=== PATIENT | male | born 1950 | race Caucasian/White ===

== ENCOUNTER → 2020-02-14 15:45 | Outpatient (BNVA) | payer MEDICARE, BC, SELFPAY | PROVIDERS: PCP Internal Medicine; Visit Provider Urology | DX: C61 Malignant neoplasm of prostate (principal); R23.2 Flushing; T50.905A Adverse effect of unspecified drugs, medicaments and biological substances, initial encounter | CPT/HCPCS: 96372; 99212; J9217 ==

== ENCOUNTER → 2020-05-16 15:05 | Outpatient (BNVA) | payer MEDICARE, SELFPAY | PROVIDERS: PCP Internal Medicine; Visit Provider Urology | DX: Z13.89 Encounter for screening for other disorder (principal) | CPT/HCPCS: Q3014 ==

== ENCOUNTER → 2020-08-21 14:57 | Outpatient (BNVA) | payer MEDICARE, SELFPAY | PROVIDERS: PCP Internal Medicine; Visit Provider Urology | DX: C61 Malignant neoplasm of prostate (principal); R23.2 Flushing; G47.62 Sleep related leg cramps; T50.905A Adverse effect of unspecified drugs, medicaments and biological substances, initial encounter | CPT/HCPCS: 99212 ==

== ENCOUNTER → 2020-11-21 10:32 | Outpatient (BNVA) | payer MEDICARE, BC, SELFPAY | PROVIDERS: PCP Internal Medicine; Visit Provider Urology | DX: C61 Malignant neoplasm of prostate (principal) | CPT/HCPCS: Q3014 ==

== ENCOUNTER → 2021-02-24 09:44 | Outpatient (BNVA) | payer MEDICARE, BC, SELFPAY | PROVIDERS: PCP Internal Medicine; Visit Provider Urology | DX: C61 Malignant neoplasm of prostate (principal) | CPT/HCPCS: Q3014 ==

== ENCOUNTER → 2021-05-26 14:58 | Outpatient (BNVA) | payer MEDICARE, BC, SELFPAY | PROVIDERS: PCP Internal Medicine; Visit Provider Urology | DX: C61 Malignant neoplasm of prostate (principal) | CPT/HCPCS: 99212 ==

== ENCOUNTER → 2021-09-09 10:36 | Outpatient (BNVA) | payer MEDICARE, BC, SELFPAY | PROVIDERS: PCP Internal Medicine; Visit Provider Urology | DX: C61 Malignant neoplasm of prostate (principal); E29.1 Testicular hypofunction | CPT/HCPCS: 99212 ==

== ENCOUNTER → 2022-03-17 09:22 | Outpatient (BNVA) | payer MEDICARE, BC, SELFPAY | PROVIDERS: PCP Internal Medicine; Visit Provider Urology | DX: E29.1 Testicular hypofunction (principal); C61 Malignant neoplasm of prostate | CPT/HCPCS: 99212 ==

== ENCOUNTER → 2022-09-15 08:51 | Outpatient (BNVA) | payer MEDICARE, BC, SELFPAY | PROVIDERS: PCP Internal Medicine; Visit Provider Urology | DX: C61 Malignant neoplasm of prostate (principal); E29.1 Testicular hypofunction; R97.21 Rising PSA following treatment for malignant neoplasm of prostate | CPT/HCPCS: Q3014 ==

== ENCOUNTER 2022-12-21 09:02 | Outpatient (AMB) | payer MEDICARE, BC, SELFPAY ==
--- NOTE | 2022-12-21 09:10 | A.OFFVIS_ITS ---
Intake Intake Visit Reasons: 3M PSA/Testosterone(set) Intake Note: Patient is present for Follow Up LABS Urology Med: Tadalafil (No longer on Finasteride, Testosterone) Antibiotic Allergy: Tetercycline Blood Thinner: None Pharmacy: [facility] Patient states due to side effects he has stopped taking Testosterone. Patient has spoken with Nurse Practioner here at office and confirmed that its okay to stopped. Patient reports that it has been 2 years since he stopped taking Finasteride. Allergies tetracycline Allergy (Unknown, Verified 12/21/22 09:12) Unknown HPI HPI Comments History of Present Illness Details Lex is a very pleasant male. He is a patient of Dr. Mcintyre. 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 External beam radiation with hormones 08/21 Prostate cancer was diagnosed 07/22 Dr Pierre for elevated PSA. Diagnosis was reached by needle biopsy, for elevated PSA, PSA at diagnosis 6.7 - PSA 05/25 <0.1, 11/22 <0.1, 02/22 <0.1, 05/26 <0.1, 09/23 <0.1 T 105, 03/25 <0.1 T 81, 09/24 <0.1 T75, 12/25 0.4 125 The Frankie grade is Biopsy June 2019 4+5 = 9, left mid gland, left base - 25% 4+4 = 8, left mid gland, signet cell features - 25% 3/12 cores = 4% total TNM Classification of Malignant Tumours (TNM) T1c The D'Velma (NCCN) risk category is Low Volume, High Risk (PSA > 20, Gl 8+, T3), Group 5 Last GnRH 02/21. Prior GnRH 08/21. Stop to finasteride mid 2020 Initial Therapy - EXBRT 08/21 [facility] Medical History Diverticulosis Depression Hyperlipidemia Hypothyroidism Degenerative joint disease of cervical and lumbar spine GERD (gastroesophageal reflux disease) Bladder outlet obstruction Weak urinary stream Elevated PSA Surgical History History of shoulder surgery History of back surgery Family History Other HTN (hypertension) Review of Systems Const Denies chills and Denies fever(s) Card Reports no additional complaints and Denies syncope Resp Denies cough GI Denies abdominal pain and Denies heartburn Reports as per HPI and Denies change in libido Neuro Denies syncope Psych Denies change in libido Endo Denies change in libido Physical Exam Const General: cooperative, healthy appearing, comfortable and no acute distress Orientation/consciousness: patient oriented x3 HEENT Face and sinus: Yes normal facial exam Mouth: moist mucous membranes Neck Neck: Yes normal visual inspection, Yes full ROM and Yes trachea midline Chest Chest palpation & inspection: normal inspection of the chest Resp Effort & Inspection: normal respiratory effort, able to speak in complete sentences and no respiratory distress GI Inspection: Yes normal to inspection Back/Spine/Pelvis Cervical Spine: normal cervical lordosis Thoracic/Lumbar Spine: thoracic and lumbar spine normal to inspection Skin General skin exam: no rashes or lesions noted Neuro General: patient oriented x3, gait normal, tone normal and moves all extremities Extrem General: Yes normal to inspection and Yes capillary refill normal Assessment & Plan Assessment & Plan (1) Prostate cancer: Comment: High-grade [place] 8 and 9, EXBRT with hormone therapy September 2019 Code(s): C61 - Malignant neoplasm of prostate Plan Six month follow-up Orders: Orders Prostate Specific Antigen 6 Months C61 - Malignant neoplasm of prostate Testosterone, Total 6 Months C61 - Malignant neoplasm of prostate Patient Instructions: Imaging studies, laboratory and physical exam results were discussed and reviewe d in detail. No major barriers to patient understanding were identified. An opportunity to ask questions regarding the treatment plan was provided. All questions were answered. The patient expressed understanding and agreement with the above treatment plan. The patient is aware they should contact our office by phone for worsening of their current condition or the appearance of new urologic symptoms. Compliance is encouraged with any medications and followup testing that is ordered. It is a privilege to participate in the urologic care of your patient. If you have any questions or concerns regarding treatment for the above conditions, or other urologic issues, please do not hesitate to contact me. The office telephone contact is [phone]. This note is constructed using voice recognition software. While every effort has been made to ensure accuracy imaging technician errors may have been included. Yours sincerely, Dr Jose A Pierre MD, [facility] - Urology Providers of Expert, Compassionate Care for the Genitourinary System Coding Level of Care Code Est Pt Level 3 (11556) Diagnoses Prostate cancer C61
== END 2022-12-21 09:48 | disposition home or self-care (01) ==
PROVIDERS: PCP Internal Medicine; Visit Provider Urology
DX: C61 Malignant neoplasm of prostate (principal)
CPT/HCPCS: 99213

== ENCOUNTER → 2022-12-21 09:02 | Outpatient (BNVA) | payer MEDICARE, BC, SELFPAY | PROVIDERS: PCP Internal Medicine; Visit Provider Urology | DX: C61 Malignant neoplasm of prostate (principal) | CPT/HCPCS: 99212 ==

== ENCOUNTER 2023-06-23 08:10 | Outpatient (AMB) | payer MEDICARE, BC, SELFPAY ==
--- NOTE | 2023-06-23 08:11 | A.OFFVIS_ITS ---
Intake Intake Visit Reasons: 6m PSA/Testo(set)Confirmed Intake Note: Patient presents today for telehealth a follow-up on Testo Meds- Tadalafil, Allergies to Antibiotic- Tetracycline Blood Thinner- None Senior Geotechnical Engineer Required: No Allergies tetracycline Allergy (Unknown, Verified 06/23/23 08:12) Unknown HPI HPI Comments History of Present Illness Details Lex is a very pleasant male. He is a patient of Dr. Mcintyre. 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 External beam radiation with hormones 08/21 Prostate cancer was diagnosed 07/22 Dr Pierre for elevated PSA. Diagnosis was reached by needle biopsy, for elevated PSA, PSA at diagnosis 6.7 - PSA 05/25 <0.1, 11/22 <0.1, 02/22 <0.1, 05/26 <0.1, 09/23 <0.1 T 105, 03/25 <0.1 T 81, 09/24 <0.1 T75, 12/25 0.4 125, 06/25 <0.1 75 The Frankie grade is Biopsy June 2019 4+5 = 9, left mid gland, left base - 25% 4+4 = 8, left mid gland, signet cell features - 25% 06/13 cores = 4% total TNM Classification of Malignant Tumours (TNM) T1c The D'Velma (NCCN) risk category is Low Volume, High Risk (PSA > 20, Gl 8+, T3), Group 5 Last GnRH 02/21. Prior GnRH 5/20. Stop to finasteride mid 2020 Initial Therapy - EXBRT 08/21 [facility] Medical History Diverticulosis Depression Hyperlipidemia Hypothyroidism Degenerative joint disease of cervical and lumbar spine GERD (gastroesophageal reflux disease) Bladder outlet obstruction Weak urinary stream Elevated PSA Surgical History History of shoulder surgery History of back surgery Family History Other HTN (hypertension) Review of Systems Const All systems reviewed & are unremarkable except as noted in HPI and below Reports no additional complaints Resp Reports no additional complaints GI Reports no additional complaints Reports as per HPI Musc Reports no additional complaints Physical Exam Telemedicine evaluation Appropriate responses Regular breathing rate and rhythm HEENT Head: Yes normal to inspection Ears: hearing grossly normal bilaterally Eyes General: appearance normal, both eyes and all related structures Neck Neck: Yes normal visual inspection Chest Chest palpation & inspection: normal inspection of the chest Resp Effort & Inspection: normal respiratory effort and able to speak in complete sentences Assessment & Plan Assessment & Plan (1) Prostate cancer: Comment: High-grade [place] 8 and 9, EXBRT with hormone therapy September 2019 Code(s): C61 - Malignant neoplasm of prostate (2) Hypogonadism in male: Code(s): E29.1 - Testicular hypofunction Plan 6m f/u T/PSA Orders: Orders Testosterone, Total 6 Months C61 - Malignant neoplasm of prostate Prostate Specific Antigen 6 Months C61 - Malignant neoplasm of prostate Patient Instructions: Imaging studies, laboratory and physical exam results were discussed and reviewed in detail. No major barriers to patient understanding were identified. An opportunity to ask questions regarding the treatment plan was provided. All questions were answered. The patient expressed understanding and agreement with the above treatment plan. The patient is aware they should contact our office by phone for worsening of their current condition or the appearance of new urologic symptoms. Compliance is encouraged with any medications and followup testing that is ordered. It is a privilege to participate in the urologic care of your patient. If you have any questions or concerns regarding treatment for the above conditions, or other urologic issues, please do not hesitate to contact me. The office telephone contact is [phone]. This note is constructed using voice recognition software. While every effort has been made to ensure accuracy set rider errors may have been included. Yours sincerely, Dr Jose A Pierre MD, [facility] - Urology Providers of Expert, Compassionate Care for the Genitourinary System Telehealth Telehealth Location of provider rendering services: practice address Location of patient: address on file Patient Identification confirmed using: Name, : Yes Telehealth method: video Patient verbally consented to treatment: Yes Patient verbally consented to billing insurance company: Yes Patient informed of any privacy concerns related to visit: Yes Coding Level of Care Code Tele Est Pt Level 3 (87798) Diagnoses Prostate cancer C61 Hypogonadism in male E29.1
== END 2023-06-23 09:28 | disposition home or self-care (01) ==
LOC: HO.HUSH 08:10
PROVIDERS: PCP Internal Medicine; Visit Provider Urology
DX: C61 Malignant neoplasm of prostate (principal); E29.1 Testicular hypofunction
CPT/HCPCS: 99213

== ENCOUNTER → 2023-06-23 08:10 | Outpatient (BNVA) | payer MEDICARE, BC, SELFPAY | PROVIDERS: PCP Internal Medicine; Visit Provider Urology ==

== ENCOUNTER 2023-12-27 08:25 | Outpatient (AMB) | payer MEDICARE, OTHER, BC, SELFPAY ==
--- NOTE | 2023-12-27 08:32 | A.OFFVIS_ITS ---
Intake Visit Reasons: 6M Follow Up-PSA/Testosterone(set) Intake Note: Patient presents today for 6m follow-up on Testo/psa Meds- Tadalafil, Allergies to Antibiotic- Tetracycline Blood Thinner- None Last Puller Required: No Allergies tetracycline Allergy (Unknown, Verified 12/27/23 08:34) Unknown HPI Comments Details: Lex is a very pleasant male. He is a patient of Dr. Mcintyre. He is seen for the following urologic issues - prostate cancer - hot flashes from hormone therapy - low testosterone following prostate cancer therapy PSA remains low T has not started to recover Recommend T Trial Three-month follow-up lab work He showed me pictures of his competition 0.22 rifGumGum Hormone - hypogonadism Post prostate therapy 09/24 - T72 FSH 46 LH 34 Prostate cancer: High-grade features. External beam radiation with hormones 08/21 Prostate cancer was diagnosed 07/22 Dr Pierre for elevated PSA. Diagnosis was reached by needle biopsy, for elevated PSA, PSA at diagnosis 6.7 - PSA 05/25 <0.1, 11/22 <0.1, 02/22 <0.1, 05/26 <0.1, 09/23 <0.1 T 105, 03/25 <0.1 T 81, 09/24 <0.1 T75, 12/25 0.4 125, 06/25 <0.1 75, 12/26 <0.1 54 The Frankie grade is Biopsy June 2019 4+5 = 9, left mid gland, left base - 25% 4+4 = 8, left mid gland, signet cell features - 25% 06/13 cores = 4% total TNM Classification of Malignant Tumours (TNM) T1c The D'Velma (NCCN) risk category is Low Volume, High Risk (PSA > 20, Gl 8+, T3), Group 5 Last GnRH 02/21. Prior GnRH 08/21. Stop to finasteride mid 2020 Initial Therapy - EXBRT 08/21 [facility] Medical History Diverticulosis Depression Hyperlipidemia Hypothyroidism Degenerative joint disease of cervical and lumbar spine GERD (gastroesophageal reflux disease) Bladder outlet obstruction Weak urinary stream Elevated PSA Surgical History History of shoulder surgery History of back surgery Family History Other HTN (hypertension) Review of Systems Const Denies chills and Denies fever(s) Card Reports no additional complaints and Denies syncope Resp Denies cough GI Denies abdominal pain and Denies heartburn Reports as per HPI and Denies change in libido Neuro Denies syncope Psych Denies change in libido Endo Denies change in libido Physical Exam Const General: cooperative, healthy appearing, comfortable and no acute distress Orientation/consciousness: patient oriented x3 HEENT Face and sinus: Yes normal facial exam Mouth: moist mucous membranes Neck Neck: Yes normal visual inspection, Yes full ROM and Yes trachea midline Chest Chest palpation & inspection: normal inspection of the chest Resp Effort & Inspection: normal respiratory effort, able to speak in complete sentences and no respiratory distress GI Inspection: Yes normal to inspection Back/Spine/Pelvis Cervical Spine: normal cervical lordosis Thoracic/Lumbar Spine: thoracic and lumbar spine normal to inspection Skin General skin exam: no rashes or lesions noted Neuro General: patient oriented x3, gait normal, tone normal and moves all extremities Extrem General: Yes normal to inspection and Yes capillary refill normal Assessment & Plan Assessment & Plan (1) Prostate cancer: Comment: High-grade [place] 8 and 9, EXBRT with hormone therapy September 2019 Code(s): C61 - Malignant neoplasm of prostate Category: Medical (2) Hypogonadism in male: Code(s): E29.1 - Testicular hypofunction Category: Medical Plan Three-month follow-up Orders: Orders Prostate Specific Antigen 3 Months E29.1 - Testicular hypofunction Testosterone, Total 3 Months E29.1 - Testicular hypofunction Medications: New testosterone Apply to shoulder and rub in until dry 1 packet transdermal DAILY 30 days 150 grams 5RF E29.1 - Testicular hypofunction Patient Instructions: Imaging studies, laboratory and physical exam results were discussed and reviewed in detail. No major barriers to patient understanding were identified. An opportunity to ask questions regarding the treatment plan was provided. All questions were answered. The patient expressed understanding and agreement with the above treatment plan. The patient is aware they should contact our office by phone for worsening of their current condition or the appearance of new urologic symptoms. Compliance is encouraged with any medications and followup testing that is ordered. It is a privilege to participate in the urologic care of your patient. If you have any questions or concerns regarding treatment for the above conditions, or other urologic issues, please do not hesitate to contact me. The office telephone contact is [phone]. This note is constructed using voice recognition software. While every effort has been made to ensure accuracy crate builder errors may have been included. Yours sincerely, Dr Jose A Pierre MD, [facility] - Urology Providers of Expert, Compassionate Care for the Genitourinary System Coding Level of Care Code Est Pt Level 4 (96958) Diagnoses Prostate cancer C61 Hypogonadism in male E29.1
== END 2023-12-27 09:22 | disposition home or self-care (01) ==
PROVIDERS: PCP Internal Medicine; Visit Provider Urology
DX: C61 Malignant neoplasm of prostate (principal); E29.1 Testicular hypofunction
CPT/HCPCS: 99214

== ENCOUNTER → 2023-12-27 08:25 | Outpatient (BNVA) | payer MEDICARE, OTHER, BC, SELFPAY | PROVIDERS: PCP Internal Medicine; Visit Provider Urology | DX: C61 Malignant neoplasm of prostate (principal); E29.1 Testicular hypofunction | CPT/HCPCS: 99212 ==

== ENCOUNTER 2024-03-23 12:58 | Outpatient (AMB) | payer MEDICARE, OTHER, SELFPAY ==
--- NOTE | 2024-03-23 12:58 | MHC.OFFVIS ---
Intake Visit Reasons: 3m/labs Intake Note: Patient is present for 3M/LABS Urology Medication:TADALAFIL,TESTOSTERONE Antibiotic Allergy:TETRACYCLINE Blood Thinner:NONE Physical Science Professor Required: No Allergies tetracycline Allergy (Unknown, Verified 03/23/24 12:59) Unknown HPI Comments Details: Lex is a very pleasant male. He is a patient of Dr. Mcintyre. 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 External beam radiation with hormones 08/21 Prostate cancer was diagnosed 07/22 Dr Pierre for elevated PSA. Diagnosis was reached by needle biopsy, for elevated PSA, PSA at diagnosis 6.7 - PSA 05/25 <0.1, 11/22 <0.1, 02/22 <0.1, 05/26 <0.1, 09/23 <0.1 T 105, 03/25 <0.1 T 81, 09/24 <0.1 T75, 12/25 0.4 125, 06/25 <0.1 75, 12/26 <0.1 54 The [place] grade is Biopsy June 2019 4+5 = 9, left mid gland, left base - 25% 4+4 = 8, left mid gland, signet cell features - 25% 06/13 cores = 4% total TNM Classification of Malignant Tumours (TNM) T1c The D'Velma (NCCN) risk category is Low Volume, High Risk (PSA > 20, Gl 8+, T3), Group 5 Last GnRH 02/21. Prior GnRH 08/21. Stop to finasteride mid 2020 Initial Therapy - EXBRT 08/21 [facility] Medical History Diverticulosis Depression Hyperlipidemia Hypothyroidism Degenerative joint disease of cervical and lumbar spine GERD (gastroesophageal reflux disease) Bladder outlet obstruction Weak urinary stream Elevated PSA Surgical History History of shoulder surgery History of back surgery Family History Other HTN (hypertension) Review of Systems Const All systems reviewed & are unremarkable except as noted in HPI and below Reports no additional complaints Resp Reports no additional complaints GI Reports no additional complaints Reports as per HPI Musc Reports no additional complaints Physical Exam Telemedicine evaluation Appropriate responses Regular breathing rate and rhythm HEENT Head: Yes normal to inspection Ears: hearing grossly normal bilaterally Eyes General: appearance normal, both eyes and all related structures Neck Neck: Yes normal visual inspection Chest Chest palpation & inspection: normal inspection of the chest Resp Effort & Inspection: normal respiratory effort and able to speak in complete sentences Telehealth Telehealth Telehealth Platform: [employer] Location of provider rendering services: practice address Location of patient: address on file Patient Identification confirmed using: Name, : Yes Telehealth method: video Patient verbally consented to treatment: Yes Patient verbally consented to billing insurance company: Yes Patient informed of any privacy concerns related to visit: Yes Minutes spent on Phone/Video with Pt.: 15 Assessment & Plan Assessment & Plan (1) Hypogonadism in male: Code(s): E29.1 - Testicular hypofunction Category: Medical (2) Prostate cancer: Comment: High-grade [place] 8 and 9, EXBRT with hormone therapy September 2019 Code(s): C61 - Malignant neoplasm of prostate Category: Medical Plan Three-month follow-up lab work Orders: Orders Testosterone, Total 3 Months E29.1 - Testicular hypofunction Prostate Specific Antigen 3 Months E29.1 - Testicular hypofunction Medications: Refilled testosterone Apply to shoulder and rub in until dry 1 packet transdermal DAILY 30 days 150 grams 5RF E29.1 - Testicular hypofunction Patient Instructions: Imaging studies, laboratory and physical exam results were discussed and reviewed in detail. No major barriers to patient understanding were identified. An opportunity to ask questions regarding the treatment plan was provided. All questions were answered. The patient expressed understanding and agreement with the above treatment plan. The patient is aware they should contact our office by phone for worsening of their current condition or the appearance of new urologic symptoms. Compliance is encouraged with any medications and followup testing that is ordered. It is a privilege to participate in the urologic care of your patient. If you have any questions or concerns regarding treatment for the above conditions, or other urologic issues, please do not hesitate to contact me. The office telephone contact is [phone]. This note is constructed using voice recognition software. While every effort has been made to ensure accuracy asset protection associate errors may have been included. Yours sincerely, Dr Jose A Pierre MD, [facility] - Urology Providers of Expert, Compassionate Care for the Genitourinary System Coding Level of Care Code Tele Est Pt Level 3 (15288) Diagnoses Hypogonadism in male E29.1 Prostate cancer C61
== END 2024-03-23 13:40 | disposition home or self-care (01) ==
LOC: HO.HUSH 12:58
PROVIDERS: PCP Internal Medicine; Visit Provider Urology
DX: E29.1 Testicular hypofunction (principal); C61 Malignant neoplasm of prostate
CPT/HCPCS: 99213

== ENCOUNTER 2024-07-17 08:47 | Outpatient (AMB) | payer MEDICARE, OTHER, SELFPAY ==
--- NOTE | 2024-07-17 08:54 | A.OFFVIS_ITS ---
Intake Visit Reasons: 3m/labs Intake Note: Patient is present for 3M/LABS Urology Medication:TADALAFIL,TESTOSTERONE,MEGESTROL Antibiotic Allergy:TETRACYCLINE Blood Thinner:NONE Lead Generation Representative Required: No Allergies tetracycline Allergy (Unknown, Verified 07/17/24 08:55) Unknown HPI Comments Details: Lex is a very pleasant male. He is a patient of Dr. Mcintyre. 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 External beam radiation with hormones 08/21 Prostate cancer was diagnosed 07/22 Dr Pierre for elevated PSA. Diagnosis was reached by needle biopsy, for elevated PSA, PSA at diagnosis 6.7 - PSA 05/25 <0.1, 11/22 <0.1, 02/22 <0.1, 05/26 <0.1, 09/23 <0.1 T 105, 03/25 <0.1 T 81, 09/24 <0.1 T75, 12/25 0.4 125, 06/25 <0.1 75, 12/26 <0.1 54 The Ellsworth grade is Biopsy June 2019 4+5 = 9, left mid gland, left base - 25% 4+4 = 8, left mid gland, signet cell features - 25% /12 cores = 4% total TNM Classification of Malignant Tumours (TNM) T1c The D'Velma (NCCN) risk category is Low Volume, High Risk (PSA > 20, Gl 8+, T3), Group 5 Last GnRH 02/21. Prior GnRH 08/21. Stop to finasteride mid 2020 Initial Therapy - EXBRT 08/21 [facility] Medical History Diverticulosis Depression Hyperlipidemia Hypothyroidism Degenerative joint disease of cervical and lumbar spine GERD (gastroesophageal reflux disease) Bladder outlet obstruction Weak urinary stream Elevated PSA Surgical History History of shoulder surgery History of back surgery Family History Other HTN (hypertension) Review of Systems Const Denies chills and Denies fever(s) Card Reports no additional complaints and Denies syncope Resp Denies cough GI Denies abdominal pain and Denies heartburn Reports as per HPI and Denies change in libido Neuro Denies syncope Psych Denies change in libido Endo Denies change in libido Physical Exam Const General: cooperative, healthy appearing, comfortable and no acute distress Orientation/consciousness: patient oriented x3 HEENT Face and sinus: Yes normal facial exam Mouth: moist mucous membranes Neck Neck: Yes normal visual inspection, Yes full ROM and Yes trachea midline Chest Chest palpation & inspection: normal inspection of the chest Resp Effort & Inspection: normal respiratory effort, able to speak in complete sentences and no respiratory distress GI Inspection: Yes normal to inspection Back/Spine/Pelvis Cervical Spine: normal cervical lordosis Thoracic/Lumbar Spine: thoracic and lumbar spine normal to inspection Skin General skin exam: no rashes or lesions noted Neuro General: patient oriented x3, gait normal, tone normal and moves all extremities Extrem General: Yes normal to inspection and Yes capillary refill normal Assessment & Plan Assessment & Plan (1) Prostate cancer: Comment: High-grade Frankie 8 and 9, EXBRT with hormone therapy September 2019 Code(s): C61 - Malignant neoplasm of prostate Category: Medical (2) Hypogonadism in male: Code(s): E29.1 - Testicular hypofunction Category: Medical Plan Six-month follow-up lab work Orders: Orders Prostate Specific Antigen 6 Months E29.1 - Testicular hypofunction Testosterone, Total 6 Months E29.1 - Testicular hypofunction Complete Blood Count no Diff 6 Months E29.1 - Testicular hypofunction Medications: Refilled testosterone Apply to shoulder and rub in until dry 1 packet transdermal DAILY 30 days 150 grams 5RF E29.1 - Testicular hypofunction tadalafil daily 5 mg PO DAILY 90 days 90 tabs 1RF hypogonadism E29.1 - Testicular hypofunction Discontinued megestrol Discontinued Reason: Patient Completed Course 20 mg PO BID 30 days 60 tabs 1RF R23.2 - Flushing, T50.905A - Adverse effect of unspecified drugs, medicaments and biological substances, initial encounter Patient Instructions: This note is constructed using voice recognition software. While every effort has been made to ensure accuracy branch operations specialist errors may have been included. Imaging studies, laboratory and physical exam results were discussed and r eviewed in detail. No major barriers to patient understanding were identified. An opportunity to ask questions regarding the treatment plan was provided. All questions were answered. The patient expressed understanding and agreement with the above treatment plan. The patient is aware they should contact our office by phone for worsening of their current condition or the appearance of new urologic symptoms. Compliance is encouraged with any medications and followup testing that is ordered. It is a privilege to participate in the urologic care of your patient. If you have any questions or concerns regarding treatment for the above conditions, or other urologic issues, please do not hesitate to contact me. The office telephone contact is [phone]. Sincerely, Dr Jose A Pierre MD, [facility] - Urology Compassionate Specialist Care for the Genitourinary System Coding Level of Care Code Est Pt Level 3 (76378) Complex EM visit Add On G2211 Diagnoses Prostate cancer C61 Hypogonadism in male E29.1
--- OUTSIDE RECORDS SUMMARY | 2024-07-17 09:10 | XMS_ITS | Clinical Summary ---
Author Organization [facility] Address [address] [place] [address] Care Team Providers Care Steep Tender Name Role Phone Zachary Mcintyre MD Primary Care Provider [phone] Surgical History Surgery Date Site/Laterality Comments NECK SURGERY PROCEDURE:NECK SURGERY SPINAL CORD DECOMPRESSION PROCEDURE:SPINAL CORD DECOMPRESSION SPINAL FUSION PROCEDURE:SPINAL FUSION CATARACT EXTRACTION, BILATERAL PROCEDURE:CATARACT EXTRACTION, BILATERAL SINUS SURGERY PROCEDURE:SINUS SURGERY COLONOSCOPY 01/19/2018 N/A PROCEDURE:COLONOSCOPY;COMMENT :Procedure: COLONOSCOPY; Surgeon: Leonel Handley MD; Location: [facility]; Service: Gastroenterology; Laterality: N/A; SHOULDER SURGERY Left PROCEDURE:SHOULDER SURGERY Medical History Medical History Date Comments Hypothyroidism DX:Hypothyroidis m Hyperlipidemia DX:Hyperlipidemi a GERD (gastroesophageal reflux disease) DX:GERD (gastroesophageal reflux disease) Cancer ([facility] V24, [facility] V28) DX:Cancer ([facility]);COMMENT:prostate Family History Medical History Relation Name Comments Hypertension Brother 1 Alcohol abuse Brother 2 Drug abuse Brother 2 Childhood respiratory disease Brother 3 Aneurysm Father Aneurysm Father's Brother Aneurysm Father's Sister Colon cancer Mother Prostate cancer Mother's Brother Lung cancer Sister 1 Cancer Sister 2 breast Lupus Sister 3 Relation Name Status Comments Brother 1 Alive Brother 2 Brother 3 (Age 1.5) unknown c hildhood illness Father Father's Brother Father's Sister Mother Mother's Brother Sister 1 Sister 2 Alive Sister 3 Alive Social History Tobacco Use Types Packs/Day Years Used Date Smoking Tobacco: Never Smokeless Tobacco: Never Alcohol Use Standard Drinks/Week Comments Not Currently 0 (1 standard drink = 0.6 oz pur e alcohol) Sex and Gender Information Value Date Recorded Sex Assigned at Not on file Legal Sex Male 5:01 PM EST Gender Identity Not on file Sexual Orientation Not on file Obstetrics History Last Filed Vital Signs Vital Sign Reading Time Taken Comments Blood Pressure 130/80 08/16/2022 7:58 AM EDT Pulse 60 08/16/2022 7:58 AM EDT Temperature - - Respiratory Rate - - Oxygen Saturation - - Inhaled Oxygen Concentration - - Weight 82.7 kg (182 lb 6.4 oz) 09/12/2023 11:11 AM EDT Height 172.7 cm (5' 8 ) 09/12/2023 11:11 AM EDT Body Mass Index 27.73 09/12/2023 11:11 AM EDT Plan of Treatment Health Maintenance Due Date Last Done Comments COVID-19 Vaccine (#1) 07/21/1955 DTaP,Tdap,and Td Vaccines (1 - Tdap) 07/21/1970 Pneumococcal Vaccine: 50+ Ye ars (1 of 2 - PCV) 07/21/1970 Zoster Vaccines (1 of 2) 07/21/1970 Cholesterol Screening (Lipid Panel) 03/03/2022 Colorectal Cancer Screening: Colonoscopy 03/03/2022 Depression Screening 03/03/2022 Falls Risk Assessment 03/03/2022 Hepatitis C Screening 03/03/2022 Social Influencers of Health Screening 03/03/2022 Influenza Vaccine (Season Ended) 2024 RSV Immunization Adult Patie nts (1 - 1-dose 75+ series) 07/21/2026 HIB Vaccines Aged Out No longer eligi ble based on patient's age to complete this topic HPV Vaccines Aged Out No longer eligi ble based on patient's age to complete this topic Hepatitis A Vaccines Aged Out No long er eligible based on patient's age to complete this topic Hepatitis B Vaccines Aged Out No long er eligible based on patient's age to complete this topic IPV Vaccines Aged Out No longer eligi ble based on patient's age to complete this topic MMR Vaccines Aged Out No longer eligi ble based on patient's age to complete this topic Meningococcal ACWY Vaccine Aged Out N o longer eligible based on patient's age to complete this topic Meningococcal B Vaccine Aged Out No l onger eligible based on patient's age to complete this topic RSV Immunization Patients Un davi 20 months Aged Out No longer eligible b ased on patient's age to complete this topic Varicella Vaccines Aged Out No longer eligible based on patient's age to complete this topic Care Teams Steep Tender Relationship Specialty Start Date End Date Zachary Mcintyre MD PCP - General Claims Collector 01/17/18
--- OUTSIDE RECORDS SUMMARY | 2024-07-17 09:10 | XMS_ITS ---
Author Name [facility] Organization Unknown Results Test Name/Text Value Interpretation Date Range Source Troponin I SerPl HS-mCnc 6ng/L Normal [id number] 0 - 20 [facility] D DIMER DDU PPP EIA MCNC 306ng/mLDDU Above high normal [id number] - 231 [facility] MAGNESIUM SERPL MCNC 1.8mg/dL Normal [id number] 1.7 - 2.8 [facility] Troponin I SerPl HS-mCnc 6ng/L Normal [id number] 0 - 20 [facility] CREAT SERPL [facility] 1mg/dL Normal [id number] 0.7 - 1.3 [facility] SODIUM SERPL SCNC 140mmol/L Normal [id number] 135 - 145 [facility] GLUCOSE SERPL [facility]NC 110mg/dL Normal [id number] 70 - 199 [facility] Glomerular filtration rate/1.73 sq M. predicted 80 Normal [id number] 60 - [facility] CHLORIDE SERPL SCNC 103mmol/L Normal [id number] 98 - 10 7 [facility] HCO3 SER SCNC 28mmol/L Normal [id number] 24 - 32 [facility] POTASSIUM SERPL SCNC 3.9mmol/L Normal [id number] 3.5 - 5.1 [facility] ANION GAP SERPL SCNC 9mmol/L Normal [id number] 5 - 14 [facility] BUN SERPL [facility] 18mg/dL Normal [id number] 9 - 20 [facility] CALCIUM SERPL [facility]NC 9.7mg/dL Normal [id number] 8.4 - 10 .2 [facility] APTT TIME PPP 36sec Normal [id number] 25 - 37 [facility] PT TIME PPP 10.6sec Normal [id number] 10.5 - 13.3 [facility] INR PPP 0.9 Normal [id number] 0.8 - 1.1 [facility] AN DIFFERENTIAL TYPE AUTOMATED Normal [id number] [facility] NEUTROPHILS NFR BLD AUTO 61.8% Normal [id number] 44 - 74 [facility] BASOPHILS NFR BLD AUTO 0.7% Normal [id number] 0 - 2 [facility] MONOCYTES NFR BLD AUTO 9% Normal [id number] 2 - 12 [facility] HCT VFR BLD AUTO 39.7% Below low normal [id number] 40 - 54 [facility] MONOCYTES NO. BLD AUTO 0.5K/uL Normal [id number] 0 - 0.8 [facility] RDW RBC AUTO RTO 13.5% Normal [id number] 12.1 - 17. 7 [facility] PLATELET NO. BLD AUTO 253K/uL Normal [id number] 150 - 450 [facility] EOSINOPHIL NO. BLD AUTO 0.1K/uL Normal [id number] 0 - 0.5 [facility] RBC NO. BLD AUTO 4.46M/uL Below low normal [id number] 4.7 - 6 [facility] MCH RBC QN AUTO 30.8pg Normal [id number] 25 - 33 C [facility] MCHC RBC AUTO MCNC 34.7g/dL Normal [id number] 32 - 36 [facility] HGB BLD MCNC 13.8g/dL Normal [id number] 13.5 - 18 [facility] BASOPHILS IN BLOOD BY AUTOMATED COUNT 0K/uL Normal [id number] 0 - 0.2 [facility] WBC NO. BLD AUTO 5.4K/uL Normal [id number] 4 - 10.5 [facility] EOSINOPHIL NFR BLD AUTO 2.4% Normal [id number] 0 - 6 [facility] LYMPHOCYTES NFR BLD AUTO 26.1% Normal [id number] 20 - 48 [facility] MCV RBC AUTO 88.9fL Normal [id number] 78 - 100 [facility] NEUTROPHILS NO. BLD AUTO 3.3K/uL Normal [id number] 1.8 - 7.8 [facility] LYMPHOCYTES NO. BLD AUTO 1.4K/uL Normal [id number] 1 - 3.2 [facility] PMV BLD AUTO 6.7fL Below low normal [id number] 7.4 - 1 1.4 [facility] History of Medication Use Medication Directions Dispensed Refills Start Date End Date Stat us senna (SENOKOT) 8.6 MG tablet 2 tablet 2 tablet, Oral, Daily, First dose on 08/06/23 at 0900Hold for loose stools. 08/06/2023 active levothyroxine (SYNTHROID) tablet 112 mcg 112 mcg, Oral, Daily, First dose on 08/06/23 at 0600 07/01/2023 active cyclobenzaprine (FLEXERIL) 10 MG tablet Take 0.5 tablets (5 mg total) by mouth every night at bedtime as needed for muscle spasms. 09/18/2021 08/05/2023 aborted levothyroxine (SYNTHROID) tablet 125 mcg 08/06/2022 08/05/2023 aborted pantoprazole (PROTONIX) 40 MG EC tablet 40 mg 40 mg, Oral, Every Morning on an empty stomach (Daily), First dose on 08/06/23 at 0600Please select an indication: GERDIs this a home medication or a new start? Home Medication 08/06/2023 active Allergies Allergen Reaction Severity Comment Documented Date Source Statu s TETRACYCLINES [facility] Problems Problem Status Onset Date Problem Type Date of Resoluti on Source Screening for colon cancer active EncounterDiagnosisAct [facility] Prostate cancer active 2019-08-[address] [facility] Syncope and collapse active 2021-09-17 ProblemAct [facility] Chest pain active 2023-08-05 ProblemAct [facility] Hypoxia active 2021-03-13 ProblemAct [facility] N Encounters Encounter Type Encounter Reason Primary Diagnosis Location Date Ambulatory Malignant neoplasm o f prostate Malignant neoplasm of prostate [facility] 09/12/2023 Ambulatory [facility] 08/16/2023 Inpatient Chest pain, unspecified Chest pain, unspecified [facility] 08/05/2023 Care Team Organization Name Specialty Phone Email Start Date End Da te [facility] 04/15/2024 [facility] 04/11/2024 [facility] 02/16/2024 [facility] 02/16/2024 [facility] 0508/2023 [facility] 08/05/2023 [facility] 09/06/2022 12[facility]08[facility]20[facility] 07/21/2022 07/21/2022
--- OUTSIDE RECORDS SUMMARY | 2024-07-17 09:10 | XMS_ITS | Clinical Summary ---
Author Organization [facility] Address [address] [place] [address] Care Team Providers Care Retail Asset Protection Specialist Name Role Phone Malik Ruvalcaba MD Primary Care Provider Allergies Active Allergy Reactions Criticality Noted Date Comments Tetracyclines & Related 12/20/2017 Medications FLUTICASONE PROPIONATE, NASAL, (FT Allergy Relief 24 HR) 50 MCG/ACT nasal spray USE 2 SPRAYS EACH NOSTRIL AT BEDTIME 1 6 12/20/2017 Active Omeprazole (PriLOSEC) [address] capsule 90 0 07/07/2022 Active Simvastatin (ZOCOR) 20 MG tablet 90 0 07/07/2022 Active Levothyroxine Sodium (SYNTHROID, LEVOTHROID) 125 MCG tablet 30 0 08/06/2022 Active Active Problems Problem Noted Date Diagnosed Date Allergic rhinitis 08/23/2022 Neck pain 08/23/2022 Sensory hearing loss, bilateral 12/20/2017 Hypertrophy of inferior nasal turbinate 12/21/19 Social History Tobacco Use Types Packs/Day Years Used Date Smoking Tobacco: Never Assessed Sex and Gender Information Value Date Recorded Sex Assigned at Not on file Legal Sex Male 6:38 PM EDT Gender Identity Not on file Sexual Orientation Not on file Last Filed Vital Signs Vital Sign Reading Time Taken Comments Blood Pressure 133/78 12/20/2017 10:31 AM EDT Pulse 61 12/20/2017 10:31 AM EDT Temperature - - Respiratory Rate - - Oxygen Saturation - - Inhaled Oxygen Concentration - - Weight 78.9 kg (174 lb 0.2 oz) 12/20/2017 10:29 AM EDT Height 170.2 cm (5' 7 ) 12/20/2017 10:29 AM EDT Body Mass Index 27.25 12/20/2017 10:29 AM EDT Plan of Treatment Health Maintenance Due Date Last Done Comments Hepatitis C Screening 1950 DTaP/Tdap/Td (1 - Tdap) 07/21/1969 Colon Cancer Screening 07/21/1996 Pneumococcal 50+ years (1 of 1 - PCV) 07/21/2001 Zoster (Shingrix) (1 of 2) 07/21/2001 COVID-19 Vaccine ( - 2023-2 5 season) 2023 Influenza (#1) 2023 RSV (1 - 1-dose 75+ series) 07/21/2026 Abdominal Aorta Imaging Discontinued HPV Vaccine Aged Out No longer eligi ble based on patient's age to complete this topic Hep A Aged Out No longer eligi ble based on patient's age to complete this topic Hep B Aged Out No longer eligi ble based on patient's age to complete this topic Hib Aged Out No longer eligi ble based on patient's age to complete this topic Meningococcal ACWY Aged Out No longer eligible based on patient's age to complete this topic Zoster (Zostavax) Discontinued Care Teams Retail Asset Protection Specialist Relationship Specialty Start Date End Date Malik Ruvalcaba MD [address] [facility] [address] [place] [address] PCP - General 11/08/22
--- OUTSIDE RECORDS SUMMARY | 2024-07-17 09:10 | XMS_ITS | Clinical Summary ---
Author Organization [facility] Address [address] [place] [address] Care Team Providers Care Licensed Pharmacist Name Role Phone Zachary Guerrero MD Primary Care Provider [phone] Allergies No known active allergies Medications Medication Sig Dispensed Refills Start Date End Date Status levothyroxine (Synthroid) 112 MCG tablet Take 112 mcg by mouth daily on an empty stomach. Active OMEprazole (PriLOSEC) 20 MG capsule Take 20 mg by mouth every morning before breakfast. Active atorvastatin (LIPITOR) 40 MG tablet 12/03/2023 Active ttpboi-lhuzpdpma-lim nesium sulfates (Suprep Bowel Prep Kit) 17.5-3.13-1.6 GM/177ML Solution solutionIndications: Hx of colonic polyps Follow directions provided by physician's office. 354 mL 02/16/2024 Active Encounters Date Type Department Care Team Description 06/15/2024 Scanned Document [facility] Infectious Disease [address] [address] Judith Del Toro MD from Last 3 Months Social History Tobacco Use Types Packs/Day Years Used Date Smoking Tobacco: Never Assessed Sex and Gender Information Value Date Recorded Sex Assigned at Male 02/16/2024 8:28 AM EST Gender Identity Transgender Male 02/16/2024 8:28 AM EST Sexual Orientation Heterosexual (straight) 02/15 8:28 AM EST Last Filed Vital Signs Vital Sign Reading Time Taken Comments Blood Pressure - - Pulse - - Temperature - - Respiratory Rate - - Oxygen Saturation - - Inhaled Oxygen Concentration - - Weight 80.7 kg (178 lb) 02/16/2024 8:38 AM EST Height 170.2 cm (5' 7 ) 02/16/2024 8:38 AM EST Body Mass Index 27.88 02/16/2024 8:38 AM EST Plan of Treatment Upcoming Encounters Date Type Department Care Team (Late st Contact Info) Description 08/01/2024 10:30 AM EDT Office Visit [facility] Infectious Disease [place] [address] [place] [address] Judith Del Toro MD [address] [place] [address] Health Maintenance Due Date Last Done Comments Hepatitis C Virus Screening 1950 DTaP/Tdap/Td Vaccines (1 - Tdap) 07/21/1970 Pneumococcal Vaccines 50+ (1 of 1 - PCV) 07/21/2001 Zoster (Shingles) Vaccine (1 of 2) 07/21/2001 DXA Bone Density (Females,Ag es 65 and older) 07/21/2016 Influenza Vaccine 11/03/2023 COVID-19 Vaccine ( - 2023-2 5 season) 2023 RSV Vaccine 60 years and old er and Patients (1 - 1-dose 75+ series) 07/21/2026 Colonoscopy 04/12/2034 04/12/2024 Hepatitis B Vaccines Aged Out No long er eligible based on patient's age to complete this topic Care Teams Licensed Pharmacist Relationship Specialty Start Date End Date Zachary Guerrero MD [address] [place] [id number] PCP - General Internal Medicine 02/16/24
--- OUTSIDE RECORDS SUMMARY | 2024-07-17 09:10 | XMS_ITS | Encounter Summary ---
Author Organization [facility] Address [address] [place] [address] Care Team Providers Care Engineer Of System Development Name Role Phone Zachary Guerrero MD Primary Care Provider [phone] Encounter Details Date Type Department Care Team (Late Contact Info) Description 06/15/2024 Scanned Document [facility] Infectious Disease [address] [address] Judith Del Toro MD [address] [place] [address] Social History Tobacco Use Types Packs/Day Years Used Date Smoking Tobacco: Never Assessed Sex and Gender Information Value Date Recorded Sex Assigned at Male 02/16/2024 8:28 AM EST Gender Identity Transgender Male 02/16/2024 8:28 AM EST Sexual Orientation Heterosexual (straight) 02/15 8:28 AM EST documented as of this encounter Plan of Treatment Upcoming Encounters Date Type Department Care Team (Late st Contact Info) Description 08/01/2024 10:30 AM EDT Office Visit [facility] Infectious Disease [address] [address] Judith Del Toro MD [address] [place] [address] documented as of this encounter Visit Diagnoses Not on filedocumented in this encounter Care Teams Engineer Of System Development Relationship Specialty Start Date End Date Zachary Guerrero MD [address] [place] [id number] PCP - General Internal Medicine 02/16/24 documented as of this encounter
--- OUTSIDE RECORDS SUMMARY | 2024-07-17 09:10 | XMS_ITS | Clinical Summary ---
Author Organization [facility] Address [address] [place] [address] Care Team Providers Care Treater Name Role Phone Zachary Guerrero MD Primary Care Provider [phone] Allergies Active Allergy Reactions Criticality Noted Date Comments Tetracycline 01/17/2018 Heartburn Medications Medication Sig Dispensed Refills Start Date End Date Status omeprazole (PriLOSEC) 20 MG capsule Take 1 capsule (20 mg total) by mouth daily. 0 07/05/2019 Active atorvastatin (LIPITOR) tablet 40 mg Take 1 tablet (40 mg total) by mouth every night at bedtime. 0 05/18/2023 Active levothyroxine (SYNTHROID) tablet 112 mcg Take 1 tablet (112 mcg total) by mouth daily. 0 07/01/2023 Active MAGNESIUM PO Take 1 tablet by mouth daily. 0 Active Turmeric (QC Tumeric Complex) 500 MG CAPS Take 1 capsule by mouth daily. 0 Active Nutritional Supplements (GRAPESEED EXTRACT PO) Take 1 capsule by mouth daily. 0 Active Glutathione 500 MG CAPS Take 1 capsule by mouth daily. 0 Active Active Problems Problem Noted Date Diagnosed Date Chest pain 08/05/2023 Syncope and collapse 09/17/2021 Hypoxia 03/13/2021 Prostate cancer 08/29/2019 Cancer Staging:Clinical stage from 08/29/2019:Stage IIIC(cT1c, cN0, cM0, PSA: 6.7, Grade Group: 5) - Signed by Leonel Claros MD on 08/29/2019 Family History Medical History Relation Name Comments Hypertension Brother 1 Alcohol abuse Brother 2 Drug abuse Brother 2 Childhood respiratory disease Brother 3 Aneurysm Father Prostate cancer Maternal Uncle Colon cancer Mother Aneurysm Paternal Aunt Aneurysm Paternal Uncle Lung cancer Sister 1 Cancer Sister 2 breast Lupus Sister 3 Relation Name Status Comments Brother 1 Alive Brother 2 Brother 3 (Age 1.5) unknown c hildhood illness Father Maternal Uncle Mother Paternal Aunt Paternal Uncle Sister 1 Sister 2 Alive Sister 3 Alive Social History Tobacco Use Types Packs/Day Years Used Date Smoking Tobacco: Never Smokeless Tobacco: Never Tobacco Cessation:Counseling Given: Not Answered Alcohol Use Standard Drinks/Week Comments Not Currently 0 (1 standard drink = 0.6 oz pur e alcohol) rare - few times a year Sex and Gender Information Value Date Recorded Sex Assigned at Male 09/21/2019 7:37 AM EDT Gender Identity Male 04/01/2021 10:26 PM EST Sexual Orientation Not on file Job Start Date Occupation Industry Not on file Not on file Not on file Last Filed Vital Signs Vital Sign Reading Time Taken Comments Blood Pressure 132/72 08/05/2023 4:28 PM EDT Pulse 64 08/05/2023 4:28 PM EDT Temperature 37.1 ??C (98.7 ??F) 08/05/2023 4:28 PM ED T Respiratory Rate 21 08/05/2023 4:28 PM EDT Oxygen Saturation 96% 08/05/2023 4:28 PM EDT Inhaled Oxygen Concentration - - Weight 82.7 kg (182 lb 6.4 oz) 09/12/2023 11:11 AM EDT Height 172.7 cm (5' 8 ) 09/12/2023 11:11 AM EDT Body Mass Index 27.73 09/12/2023 11:11 AM EDT Plan of Treatment Health Maintenance Due Date Last Done Comments Hepatitis C Screening 1950 COVID-19 Vaccine (#1) 07/21/1956 Depression Screening 1963 Preventative Health Evaluation 07/21/1969 DTap / Tdap / Td (1 - Tdap) 07/21/1970 Fall Risk Assessment 07/21/2016 Influenza Vaccine (#1) 2023 RSV Adult > 60+ Yrs or (1 - 1-dose 75+ series) 07/21/2026 Colon Cancer Screening (Colonoscopy) 01/20/2028 01/19/2018 Pneumococcal Vaccine Completed 12/06/2018, 12/01/2017 Shingrix-Zoster Vaccine Completed 05/11/19 24, 03/07/2023 Hepatitis B Vaccines Aged Out No long er eligible based on patient's age to complete this topic RSV Ped < 20 months Aged Out No longe r eligible based on patient's age to complete this topic Advance Directives For more information, please contact: [phone] Latest Code Status on File Code Status Date Activated Date Inactivated Comments Full Code 08/05/2023 12:49 PM 08/05/2023 11:18 PM Code Status History Code Status Date Activated Date Inactivated Comments Full Code 09/17/2021 7:14 AM 09/18/2021 8:52 PM This code status was ascertained in the following way: discussion with patient . Full Code 04/05/2021 8:32 PM 04/06/2021 6:39 PM This co de status was ascertained in the following way: discussed . Full Code 03/13/2021 10:14 AM 03/23/2021 1:06 AM Th is code status was ascertained in the following way: Full Code 01/19/2018 10:52 AM 01/19/2018 5:37 PM Th is code status was ascertained in the following way: discussion with patient. Care Teams Treater Relationship Specialty Start Date End Date Zachary Guerrero MD [address] [place] [id number] PCP - General Hazardous Substances Scientist 01/17/18
== END 2024-07-17 09:42 | disposition home or self-care (01) ==
LOC: HO.HUSH 08:48
PROVIDERS: PCP Internal Medicine; Visit Provider Urology
DX: C61 Malignant neoplasm of prostate (principal); E29.1 Testicular hypofunction
CPT/HCPCS: 99213; G2211

== ENCOUNTER → 2024-07-17 08:47 | Outpatient (BNVA) | payer MEDICARE, OTHER, SELFPAY | PROVIDERS: PCP Internal Medicine; Visit Provider Urology | DX: C61 Malignant neoplasm of prostate (principal); E29.1 Testicular hypofunction | CPT/HCPCS: 99212 ==

== ENCOUNTER 2025-01-17 09:23 | Outpatient (AMB) | payer MEDICARE, OTHER, SELFPAY ==
--- NOTE | 2025-01-17 09:25 | MHC.OFFVIS ---
Intake Visit Reasons: 6m/labs Intake Note: patient presents today for: 6mo/labs urology medications: tadalafil, tamsulosin blood thinners: none labs done 12/31/24: PSA 0.9, TT 855 Refrigeration Systems Installer Required: No Accompanied by: Self / Same As Patient Allergies tetracycline Allergy (Unknown, Verified 01/17/25 09:28) Unknown HPI Comments Details: Lex is a very pleasant male. He is a patient of Dr. Mcintyre. He is seen for the following urologic issues - prostate cancer - hot flashes from hormone therapy - low testosterone following prostate cancer therapy Follow-up lab work showing stability Elevated testosterone at upper end of range Did have some mood changes Would cut back to 2/3 packet per day He showed me more pictures of his competition rifle and long-range shooting - completed a 1000 yard challenge with a rim fired 22 Hypogonadism Post prostate therapy 09/24 - T72 FSH 46 LH 34, 01/25 240 PSA 0.7, 07/27 320 0.7, 12/27 0.9 885 Prostate cancer: High-grade features. External beam radiation with hormones 08/21 Prostate cancer was diagnosed 07/22 Dr Pierre for elevated PSA. Diagnosis was reached by needle biopsy, for elevated PSA, PSA at diagnosis 6.7 - PSA 05/25 <0.1, 11/22 <0.1, 02/22 <0.1, 05/26 <0.1, 09/23 <0.1 T 105, 03/25 <0.1 T 81, 09/24 <0.1 T75, 12/25 0.4 125, 06/25 <0.1 75, 12/26 <0.1 54 The Frankie grade is Biopsy June 2019 4+5 = 9, left mid gland, left base - 25% 4+4 = 8, left mid gland, signet cell features - 25% 3/12 cores = 4% total TNM Classification of Malignant Tumours (TNM) T1c The D'Velma (NCCN) risk category is Low Volume, High Risk (PSA > 20, Gl 8+, T3), Group 5 Last GnRH 02/21. Prior GnRH 08/21. Stop finasteride mid 2020 Initial Therapy - EXBRT 08/21 [facility] Medical History Diverticulosis Depression Hyperlipidemia Hypothyroidism Degenerative joint disease of cervical and lumbar spine GERD (gastroesophageal reflux disease) Bladder outlet obstruction Weak urinary stream Elevated PSA Surgical History History of shoulder surgery History of back surgery Family History Other HTN (hypertension) Review of Systems Const Denies chills and Denies fever(s) Card Reports no additional complaints and Denies syncope Resp Denies cough GI Denies abdominal pain and Denies heartburn Reports as per HPI and Denies change in libido Neuro Denies syncope Psych Denies change in libido Endo Denies change in libido Physical Exam Const General: cooperative, healthy appearing, comfortable and no acute distress Orientation/consciousness: patient oriented x3 HEENT Face and sinus: Yes normal facial exam Mouth: moist mucous membranes Neck Neck: Yes normal visual inspection, Yes full ROM and Yes trachea midline Chest Chest palpation & inspection: normal inspection of the chest Resp Effort & Inspection: normal respiratory effort, able to speak in complete sentences and no respiratory distress GI Inspection: Yes normal to inspection Back/Spine/Pelvis Cervical Spine: normal cervical lordosis Thoracic/Lumbar Spine: thoracic and lumbar spine normal to inspection Skin General skin exam: no rashes or lesions noted Neuro General: patient oriented x3, gait normal, tone normal and moves all extremities Extrem General: Yes normal to inspection and Yes capillary refill normal Assessment & Plan Assessment & Plan (1) Hypogonadism in male: Code(s): E29.1 - Testicular hypofunction Category: Medical (2) Prostate cancer: Comment: High-grade [place] 8 and 9, EXBRT with hormone therapy September 2019 Code(s): C61 - Malignant neoplasm of prostate Category: Medical Plan Six-month follow-up lab work Orders: Orders Testosterone, Total 5 Months E29.1 - Testicular hypofunction Prostate Specific Antigen 5 Months E29.1 - Testicular hypofunction Medications: Refilled tadalafil daily 5 mg PO DAILY 90 tabs 1RF hypogonadism 90 days E29.1 - Testicular hypofunction testosterone Apply to shoulder and rub in until dry 1 packet transdermal DAILY 150 grams 5RF 30 days E29.1 - Testicular hypofunction Patient Instructions: This note is constructed using voice recognition software. While every effort has been made to ensure accuracy molding plasterer errors may have been included. Imaging studies, laboratory and physical exam results were discussed and reviewed in detail. No major barriers to patient understanding were identified. An opportunity to ask questions regarding the treatment plan was provided. All questions were answered. The patient expressed understanding and agreement with the above treatment plan. The patient is aware they should contact our office by phone for worsening of their current condition or the appearance of new urologic symptoms. Compliance is encouraged with any medications and followup testing that is ordered. It is a privilege to participate in the urologic care of your patient. If you have any questions or concerns regarding treatment for the above conditions, or other urologic issues, please do not hesitate to contact me. The office telephone contact is [phone]. Sincerely, Dr Jose A Pierre MD, [facility] - Urology Compassionate Specialist Care for the Genitourinary System Coding Level of Care Code Est Pt Level 4 (99087) Complex EM visit Add On G2211 Diagnoses Hypogonadism in male E29.1 Prostate cancer C61
--- OUTSIDE RECORDS SUMMARY | 2025-01-17 10:41 | XMS_ITS | Clinical Summary ---
Author Organization [facility] Address [address] [place] [address] Care Team Providers Care Route Manager Name Role Phone Malik Ruvalcaba MD Primary [...] of 2) 07/21/2001 COVID-19 Vaccine ( - 2024-2 6 season) 2024 Influenza (#1) 2024 RSV (1 - 1-dose 75+ series) 07/21/2026 Abdominal Aorta Imaging Discontinued HPV Vaccine (No Doses Required) Completed Hep A Aged Out No longer eligi [...] this topic Zoster (Zostavax) Discontinued Care Teams Route Manager Relationship Specialty Start Date End Date Malik Ruvalcaba MD [address] [facility] [address] [place] [address] PCP - General 11/08/22
--- OUTSIDE RECORDS SUMMARY | 2025-01-17 10:41 | XMS_ITS | Clinical Summary ---
Author Organization [facility] Address [address] [place] [address] Care Team Providers Care Clerical Warehouseman Name Role Phone Zachary Guerrero MD Primary Care Provider [phone] Allergies Active Allergy Reactions Criticality Noted Date [...] 64 08/05/2023 4:28 PM EDT Temperature 37.1 C (98.7 F) 08/05/2023 4:28 PM EDT Respiratory Rate 21 08/05/2023 4:28 PM EDT [...] Fall Risk Assessment 07/21/2016 Influenza Vaccine (#1) 2024 RSV Adult > 60+ Yrs or (1 [...] Advance Directives For more information, please contact: [phone] Latest Code Status on File Code Status [...] following way: discussion with patient. Care Teams Clerical Warehouseman Relationship Specialty Start Date End Date Zachary Guerrero MD [address] [place] [address] PCP - General Women'S Swim Coach 01/17/18
--- OUTSIDE RECORDS SUMMARY | 2025-01-17 10:41 | XMS_ITS | Clinical Summary ---
Author Organization [facility] Address [address] [place] [id number] Care Team Providers Care Carburetor Specialist Name Role Phone Zachary Guerrero MD Primary Care Provider [phone] Allergies Active Allergy Reactions Criticality Noted Date Comments Lidocaine Rash/Dermatitis Low 08/01/2024 Reaction to tegaderm 12/02/2023 post cath Tetracycline Unknown/Patient and Family Unable to Define Medium 01/16/2018 Outside Source Comment: Heartburn Medications levothyroxine (Synthroid) 112 MCG tablet Take 112 mcg by mouth daily on an empty stomach. Active OMEprazole (PriLOSEC) 20 MG capsule Take 20 mg by mouth every morning before breakfast. Active atorvastatin (LIPITOR) 40 MG tablet 4 Active sodium-potassiu m-magnesium sulfates (Suprep Bowel Prep Kit) 17.5-3.13-1.6 GM/177ML Solution solutionIndicat ions:Hx of colonic polyps Follow directions provided by physician's office. 354 mL 4 Active testosterone (TESTIM) 50 mg/5 g (1%) gel 5 g (50 mg of testosterone total). 5 Active Immunizations Immunization Administration Dates Next Due Hepatitis A 08/01/2024 Tdap 08/01/2024 Social History Tobacco Use Types Packs/Day Years Used Date Smoking Tobacco: Never Assessed Sex and Gender Information Value Date Recorded Sex Assigned at Male 02/16/2024 8:28 AM EST Legal Sex Male 9:43 AM EDT Gender Identity Transgender Male 02/16/2024 8:28 AM EST Sexual Orientation Heterosexual (straight) 02/15 8:28 AM EST Last Filed Vital Signs Vital Sign Reading Time Taken Comments Blood Pressure 148/90 08/01/2024 9:55 AM EDT Pulse 53 08/01/2024 9:55 AM EDT Temperature 36.6 C (97.8 F) 08/01/2024 9:55 AM EDT Respiratory Rate 16 08/01/2024 9:55 AM EDT Oxygen Saturation 98% 08/01/2024 9:55 AM EDT Inhaled Oxygen Concentration - - Weight 83.5 kg (184 lb) 08/01/2024 9:55 AM EDT Height 170.2 cm (5' 7 ) 02/16/2024 8:38 AM EST Body Mass Index 28.82 02/16/2024 8:38 AM EST Plan of Treatment Health Maintenance Due Date Last Done Comments Advance Care Planning 1950 Hepatitis C Virus Screening 1950 Pneumococcal Vaccines 50+ (1 of 1 - PCV) 07/21/2001 Zoster (Shingles) Vaccine (1 of 2) 07/21/2001 DXA Bone Density (Females,Ag es 65 and older) 07/21/2016 Influenza Vaccine 11/02/2024 COVID-19 Vaccine (1 - 2023-2 5 season) 2024 RSV Vaccine 50 years and old er and Patients (1 - 1-dose 75+ series) 07/21/2026 Colonoscopy 04/12/2034 04/12/2024 DTaP/Tdap/Td Vaccines (2 - T d or Tdap) 08/01/2034 08/01/2024 Hepatitis B Vaccines Aged Out No long er eligible based on patient's age to complete this topic Insurance MEDICARE PART A & B [facility] SUPPLEMENT ONLY on file on file MEDICARE PART A & B [facility] MEDICARE Care Teams Carburetor Specialist Relationship Specialty Start Date End Date Zachary Guerrero MD [address] [place] [id number] PCP - General Internal Medicine 02/16/24
--- OUTSIDE RECORDS SUMMARY | 2025-01-17 10:41 | XMS_ITS | Encounter Summary ---
Author Organization [address] [address] Care Team Providers Care Crop Scout Name Role Phone Zachary Guerrero MD Primary Care Provider [phone] Encounter Details Date Type Department Care Team (Late st Contact Info) Description 06/15/2024 Scanned Document [facility] Infectious Disease [address] [id number] Judith Del Toro MD [address] [place] [address] Social History Tobacco Use Types Packs/Day Years Used Date Smoking Tobacco: Never Assessed Sex and Gender Information Value Date Recorded Sex Assigned at Male 02/16/2024 8:28 AM EST Legal Sex Male 9:43 AM EDT Gender Identity Transgender Male 02/16/2024 8:28 AM EST Sexual Orientation Heterosexual (straight) 02/15 8:28 AM EST documented as of this encounter Plan of Treatment Not on file documented as of this encounter Visit Diagnoses Not on filedocumented in this encounter Care Teams Crop Scout Relationship Specialty Start Date End Date Zachary Guerrero MD [address] [place] [id number] PCP - General Internal Medicine 02/16/24 documented as of this encounter
--- OUTSIDE RECORDS SUMMARY | 2025-01-17 10:41 | XMS_ITS | Clinical Summary ---
Author Organization [facility] Address [address] [place] [address] Care Team Providers Care Loss Prevention Operations Manager Name Role Phone Zachary Mcintyre MD Primary Care Provider [phone] Surgical History Surgery Date Site/Laterality Comments NECK SURGERY PROCEDURE:NECK SURGERY SPINAL CORD DECOMPRESSION PROCEDURE:SPINAL CORD DECOMPRESSION SPINAL FUSION PROCEDURE:SPINAL FUSION CATARACT EXTRACTION, BILATERAL PROCEDURE:CATARACT EXTRACTION, BILATERAL SINUS SURGERY PROCEDURE:SINUS SURGERY COLONOSCOPY 01/19/2018 N/A PROCEDURE:COLONOSCOPY;COMMENT :Procedure: COLONOSCOPY; Surgeon: Leonel Handley MD; Location: [facility]; Service: Gastroenterology; Laterality: N/A; SHOULDER SURGERY Left PROCEDURE:SHOULDER SURGERY Medical History Medical History Date Comments Hypothyroidism DX:Hypothyroidis m Hyperlipidemia DX:Hyperlipidemi a GERD (gastroesophageal reflux disease) DX:GERD (gastroesophageal reflux disease) Cancer ([facility]/HCC V24, CMS/HCC V28) DX:Cancer ([facility]);COMMENT:prostate Family History Medical History Relation Name Comments [...] Health Maintenance Due Date Last Done Comments Colorectal Cancer Screening: Colonoscopy 1950 DTaP,Tdap,and Td Vaccines (1 - Tdap) 07/21/1970 Pneumococcal Vaccine: 50+ Ye ars (1 of 1 - PCV) 07/21/2001 Zoster Vaccines (1 of 2) 07/21/2001 Abdominal Aortic Aneurysm (A AA) Screen 03/03/2022 Cholesterol Screening (Lipid Panel) 03/03/2022 Falls Risk Assessment 03/03/2022 Hepatitis C Screening 03/03/2022 Social Influencers of Health Screening 03/03/2022 Depression Screening 04/04/2024 COVID-19 Vaccine (1 - 2023-2 5 season) 2024 Influenza Vaccine (#1) 2024 RSV Immunization Adult Patie nts (1 [...] age to complete this topic Care Teams Loss Prevention Operations Manager Relationship Specialty Start Date End Date Zachary Mcintyre MD PCP - General Certified Meeting Professional 01/17/18
--- OUTSIDE RECORDS SUMMARY | 2025-01-17 10:42 | XMS_ITS ---
[facility] Name [facility] Organization Unknown Results Test Name/Text Value Interpretation Date Range Source Troponin I SerPl HS-mCnc 6.0 ng/L Normal 08/05/2023 0 - 20 [facility] Troponin I SerPl HS-mCnc 6.0 ng/L Normal 08/05/2023 0 - 20 [facility] RBC NO. BLD AUTO 4.46 M/uL Below low normal 08/05/2023 4.7 - 6 [facility] EOSINOPHIL NFR BLD AUTO 2.4 % Normal 08/05/2023 0 - 6 [facility] RDW RBC AUTO RTO 13.5 % Normal 08/05/2023 12.1 - 17.7 [facility] BASOPHILS IN BLOOD BY AUTOMATED COUNT 0.0 K/uL Normal 08/05/2023 0 - 0.2 [facility] HGB BLD MCNC 13.8 g/dL Normal 08/05/2023 13.5 - 18 [facility] HCT VFR BLD AUTO 39.7 % Below low normal 08/05/2023 40 - 54 [facility] MCH RBC QN AUTO 30.8 pg Normal 08/05/2023 25 - 33 [facility] MONOCYTES NFR BLD AUTO 9.0 % Normal 08/05/2023 2 - 12 [facility] MCHC RBC AUTO MCNC 34.7 g/dL Normal 08/05/2023 32 - 36 [facility] PLATELET NO. BLD AUTO 253.0 K/uL Normal 08/05/2023 150 - 450 [facility] DIFFERENTIAL TYPE AUTOMATED Normal 08/05/2023 C [facility] NEUTROPHILS NFR BLD AUTO 61.8 % Normal 08/05/2023 44 - 74 [facility] MCV RBC AUTO 88.9 fL Normal 08/05/2023 78 - 100 [facility] WBC NO. BLD AUTO 5.4 K/uL Normal 08/05/2023 4 - 10.5 [facility] LYMPHOCYTES NO. BLD AUTO 1.4 K/uL Normal 08/05/2023 1 - 3.2 [facility] EOSINOPHIL NO. BLD AUTO 0.1 K/uL Normal 08/05/2023 0 - 0.5 [facility] BASOPHILS NFR BLD AUTO 0.7 % Normal 08/05/2023 0 - 2 [facility] NEUTROPHILS NO. BLD AUTO 3.3 K/uL Normal 08/05/2023 1.8 - 7.8 [facility] LYMPHOCYTES NFR BLD AUTO 26.1 % Normal 08/05/2023 20 - 48 [facility] MONOCYTES NO. BLD AUTO 0.5 K/uL Normal 08/05/2023 0 - 0.8 [facility] PMV BLD AUTO 6.7 fL Below low normal 08/05/2023 7.4 - 11. 4 [facility] D DIMER DDU PPP EIA MCNC 306.0 ng/mL DDU Above high normal 08/05/2023 - 231 [facility] PT TIME PPP 10.6 sec Normal 08/05/2023 10.5 - 13.3 [facility] INR PPP 0.9 Normal 08/05/2023 0.8 - 1.1 [facility] BUN SERPL MCNC 18.0 mg/dL Normal 08/05/2023 9 - 20 [facility] HCO3 SER SCNC 28.0 mmol/L Normal 08/05/2023 24 - 32 [facility] CHLORIDE SERPL SCNC 103.0 mmol/L Normal 08/05/2023 98 - 1 07 [facility] GLUCOSE SERPL MCNC 110.0 mg/dL Normal 08/05/2023 70 - 199 [facility] SODIUM SERPL SCNC 140.0 mmol/L Normal 08/05/2023 135 - 14 5 [facility] Glomerular filtration rate/1.73 sq M. predicted 80.0 Normal 08/05/2023 60 - [facility] ANION GAP SERPL SCNC 9.0 mmol/L Normal 08/05/2023 5 - 14 [facility] CALCIUM SERPL MCNC 9.7 mg/dL Normal 08/05/2023 8.4 - 10.2 [facility] POTASSIUM SERPL SCNC 3.9 mmol/L Normal 08/05/2023 3.5 - 5.1 [facility] CREAT SERPL MCNC 1.0 mg/dL Normal 08/05/2023 0.7 - 1.3 [facility] APTT TIME PPP 36.0 sec Normal 08/05/2023 25 - 37 [facility] MAGNESIUM SERPL MCNC 1.8 mg/dL Normal 08/05/2023 1.7 - 2.8 [facility] History of Medication Use Medication Directions Dispensed Refills Start Date End Date Stat testosterone (TESTIM) 50 mg/5 g (1%) gel 5 g (50 mg of testosterone total). 07/23/2024 active etpcbr-dmmwztetx-xlm nesium sulfates (Suprep Bowel Prep Kit) 17.5-3.13-1.6 GM/177ML Solution solution Follow directions provided by physician's office. 02/16/2024 active atorvastatin (LIPITOR) 40 MG tablet 12/03/2023 active atorvastatin (LIPITOR) tablet 40 mg 40 mg, Oral, Every Night at Bedtime, First dose on Tue08/05/23 at 2200Pregnancy Risk Factor Category: X 08/06/2023 active enoxaparin (LOVENOX) syringe 40 mg 40 mg, Subcutaneous, Every 24 hours scheduled (Daily), First dose on 08/06/23 at 0900Administer in abdomen (at least 2 inches from navel) 08/06/2023 active pantoprazole (PROTONIX) 40 MG EC tablet 40 mg 40 mg, Oral, Every Morning on an empty stomach (Daily), First dose on Tue08/06/23 at 0600Please select an indication: GERDIs this a home medication or a new start? Home Medication 08/06/2023 active senna (SENOKOT) 8.6 MG tablet 2 tablet 2 tablet, Oral, Daily, First dose on Tue08/06/23 at 0900Hold for loose stools. 08/06/2023 active acetaminophen (TYLENOL) tablet 650 mg 650 mg, Oral, Every 6 hours PRN, mild pain (1-3), Starting on Tue08/05/23 at 1248 08/05/2023 active docusate sodium (COLACE) capsule 100 mg 100 mg, Oral, 2 times daily, First dose on Tue08/05/23 at 1800Hold for loose stools. 08/05/2023 active levothyroxine (SYNTHROID) tablet 112 mcg 112 mcg, Oral, Daily, First dose on 08/06/23 at 0600 07/01/2023 active atorvastatin (LIPITOR) tablet 40 mg Take 1 tablet (40 mg total) by mouth every night at bedtime. 05/18/2023 active levothyroxine (SYNTHROID) tablet 125 mcg 08/06/2022 08/05/19 24 aborted cyclobenzaprine (FLEXERIL) 10 MG tablet Take 0.5 tablets (5 mg total) by mouth every night at bedtime as needed for muscle spasms. 09/18/2021 08/05/19 24 aborted omeprazole (PriLOSEC) 20 MG capsule Take 1 capsule (20 mg total) by mouth daily. 07/05/2019 active Fluticasone Propionate 50 MCG/ACT Nasal Suspension Fluticasone Propionate 50 MCG/ACT Nasal SuspensionUSE 2 SPRAYS EACH NOSTRIL AT BEDTIME Quantity: 1 Refills: Felix Qiu MD Start : [id number] 12/20/2017 completed simvastatin (ZOCOR) tablet 20 mg 11/18/2017 08/05/19 24 aborted atovaquone-proguanil (MALARONE) 250-100 MG per tablet Take 2 pills if travelers diarrhea Do not start before August 28, 2024. active azithromycin (ZITHROMAX) 500 MG tablet Take 1 tablet (500 mg total) by mouth daily. Do not start before August 28, 2024. active levothyroxine (Synthroid) 112 MCG tablet Take 112 mcg by mouth daily on an empty stomach. active MAGNESIUM PO Take 1 tablet by mouth daily. active Medication Administration not documented Medication Administration not documented completed No known medications No known medications active OMEprazole (PriLOSEC) 20 MG capsule Take 20 mg by mouth every morning before breakfast. active Turmeric (QC Tumeric Complex) 500 MG CAPS Take 1 capsule by mouth daily. active Allergies Allergen Reaction Severity Comment Documented Date Source Statu s LIDOCAINE RASH/DERMATITI S Reaction to tegaderm 12/02/2023 [facility] TETRACYCLINE UNKNOWN/PATIEN T AND FAMILY UNABLE TO DEFINE Outside Source Comment: Heartburn 01/16/2018 [facility] active TETRACYCLINES [facility] Problems Problem Status Onset Date Problem Type Date of Resoluti on Source Syncope and collapse active 2021-09-17 ProblemAct [facility] Chest pain active 2023-08-05 ProblemAct [facility] Hypoxia active 2021-03-13 ProblemAct [facility] Prostate cancer active 2019-08-[address] [facility] Travel advice encounter active EncounterDiagnosisAct [facility] Immunizations Vaccine Date Source Lot Number Status Hepatitis A 08/01/2024 [facility] [id number] completed Tdap 08/01/2024 [facility] [id number] completed Encounters Encounter Type Encounter Reason Primary Diagnosis Location Date Ambulatory Encounter for health counseling related to travel Encounter for health counseling related to travel [employer] 08/01/2024 Ambulatory Malignant neoplasm of prostate Malignant neoplasm of prostate [facility] [place]2023 Ambulatory [facility] [place] 08/16/2023 Inpatient Chest pain, unspecified Chest pain, unspecified [facility] [place] 08/05/2023 Care Team Organization Name Specialty Phone Email Start Date End [facility] 11/01/2024 [facility] 08/02/2024 08/30/2024 [facility] 04/15/2024 [facility] 04/11/2024 [employer] 02/16/2024 [facility] 02[facility]16/2024 [facility] 05[place]08/202310[place]16[place]20[place] [facility] [place]2023 [facility] 09/06/2022 12/08/2023 [facility] 07/21/2022 07/21/2022
== END 2025-01-17 10:00 | disposition home or self-care (01) ==
LOC: HO.HUSH 09:23
PROVIDERS: PCP Internal Medicine; Visit Provider Urology
DX: E29.1 Testicular hypofunction (principal); C61 Malignant neoplasm of prostate
CPT/HCPCS: 99214; G2211

== ENCOUNTER → 2025-01-17 09:23 | Outpatient (BNVA) | payer MEDICARE, OTHER, SELFPAY | PROVIDERS: PCP Internal Medicine; Visit Provider Urology | DX: E29.1 Testicular hypofunction (principal); C61 Malignant neoplasm of prostate | CPT/HCPCS: 99212 ==